=== PATIENT | female | born 1990 | race Caucasian/White ===

== ENCOUNTER → 2017-05-23 | Outpatient (REF) | payer OTHER | LOC: M LAB REF 13:04 | PROVIDERS: ATTEND Advanced Practice Midwife | DX: A49.9 Bacterial infection, unspecified (principal) ==

== ENCOUNTER → 2018-07-17 | Outpatient (REF) | payer OTHER | LOC: M LAB REF 18:33 | DX: Z12.4 Encounter for screening for malignant neoplasm of cervix (principal) | CPT/HCPCS: 88142 ==

== ENCOUNTER → 2018-09-13 | Outpatient (REF) | payer OTHER ==
[2018-09-13 17:02] LABS: HIV 1&2 SCREEN CENTAUR NEGATIVE (NEGATIVE)
== END ==
LOC: M SFHCPLAZ 12:45
PROVIDERS: ATTEND Dermatology
DX: R21 Rash and other nonspecific skin eruption (principal)

== ENCOUNTER → 2019-11-12 | Outpatient (REF) | payer OTHER | LOC: M SFHCCLAY 15:30 | PROVIDERS: ATTEND Family Medicine | DX: R30.0 Dysuria (principal) ==

== ENCOUNTER → 2021-01-19 | Outpatient (REF) | payer OTHER | LOC: M SFHCWAGY 09:46 | PROVIDERS: ATTEND Advanced Practice Midwife | DX: Z12.4 Encounter for screening for malignant neoplasm of cervix (principal) ==

== ENCOUNTER 2021-11-11 11:21 | Emergency (ER) | payer OTHER ==
[~2021-11-11] VITALS: Ht 165.1 cm; Wt 81.5 kg
[2021-11-11 11:35] VITALS: BP 137/88
[2021-11-11 13:22] LABS: BASO % 0.5 % (0.0-1.0); EOS # 0.3 10^3/uL (0.0-0.5); EOS % 3.6 % (0.0-3.0); HEMATOCRIT 39.4 % (36.0-47.0); HEMOGLOBIN 13.2 g/dl (12.0-15.5); LYMPH # 2.1 10^3/uL (1.5-5.0); LYMPH % 24.6 % (24.0-44.0); MEAN CORPUSCULAR HEMOGLOBIN 31.1 pg (27.0-33.0); MEAN CORPUSCULAR HGB CONC 33.5 g/dl (32.0-36.5); MEAN CORPUSCULAR VOLUME 92.9 fl (80.0-96.0); MONO # 0.8 10^3/uL (0.0-0.8); MONO % 9.7 % (2.0-8.0); NEUTROPHILS # 5.1 10^3/uL (1.5-8.5); NEUTROPHILS % 61.4 % (36.0-66.0); PLATELET COUNT, AUTOMATED 316 10^3/uL (150-450); RED BLOOD COUNT 4.24 10^6/uL (4.00-5.40); WHITE BLOOD COUNT 8.3 10^3/uL (4.0-10.0)
[2021-11-11 14:38] LABS: BLOOD UREA NITROGEN 10 MG/DL (7-18); CALCIUM LEVEL 9.1 MG/DL (8.5-10.1); CARBON DIOXIDE LEVEL 22 MEQ/L (21-32); CHLORIDE LEVEL 108 MEQ/L (98-107); CREATININE FOR GFR 0.44 MG/DL (0.55-1.30); GLOMERULAR FILTRATION RATE > 60.0 (>60); GLUCOSE, FASTING 92 MG/DL (70-100); HCG, SERUM QUANTITATIVE 6618 MIU/ML; POTASSIUM SERUM 4.2 MEQ/L (3.5-5.1); SODIUM LEVEL 138 MEQ/L (136-145)
== END 2021-11-11 15:50 | disposition home or self-care (01) ==
LOC: M ED 11:21
DX: O02.1 Missed abortion (principal); O99.321 Drug use complicating pregnancy, first trimester; Z86.16 Personal history of COVID-19; Z3A.01 Less than 8 weeks gestation of pregnancy

== ENCOUNTER → 2022-03-02 | Outpatient (CLI) | payer OTHER ==
[2022-03-02 17:53] LABS: BASO % 0.4 % (0.0-1.0); EOS # 0.2 10^3/uL (0.0-0.5); EOS % 2.1 % (0.0-3.0); HEMATOCRIT 40.4 % (36.0-47.0); HEMOGLOBIN 13.3 g/dl (12.0-15.5); LYMPH # 2.5 10^3/uL (1.5-5.0); LYMPH % 26.3 % (24.0-44.0); MEAN CORPUSCULAR HEMOGLOBIN 29.9 pg (27.0-33.0); MEAN CORPUSCULAR HGB CONC 32.9 g/dl (32.0-36.5); MEAN CORPUSCULAR VOLUME 90.8 fl (80.0-96.0); MONO # 0.7 10^3/uL (0.0-0.8); MONO % 7.6 % (2.0-8.0); NEUTROPHILS # 5.9 10^3/uL (1.5-8.5); NEUTROPHILS % 63.4 % (36.0-66.0); PLATELET COUNT, AUTOMATED 292 10^3/uL (150-450); RED BLOOD COUNT 4.45 10^6/uL (4.00-5.40); WHITE BLOOD COUNT 9.3 10^3/uL (4.0-10.0)
[2022-03-02 19:02] LABS: HEPATITIS C VIRUS ABY INDEX 0.1 INDEX (<0.8); HIV 1&2 SCREEN CENTAUR NEGATIVE (NEGATIVE)
[2022-03-03 13:47] LABS: GC DNA AMPLIFICATION NEGATIVE (NEGATIVE)
== END ==
LOC: M PLALAB 14:46
PROVIDERS: ATTEND Advanced Practice Midwife
DX: Z34.80 Encounter for supervision of other normal pregnancy, unspecified trimester (principal); Z36.89 Encounter for other specified antenatal screening

== ENCOUNTER → 2022-04-26 | Outpatient (CLI) | payer OTHER | LOC: M WHC 14:47 | PROVIDERS: ATTEND Obstetrics & Gynecology | DX: Z36.89 Encounter for other specified antenatal screening (principal); Z3A.16 16 weeks gestation of pregnancy; Z3A.19 19 weeks gestation of pregnancy ==

== ENCOUNTER → 2022-06-07 | Outpatient (CLI) | payer OTHER | LOC: M WHC 08:56 | PROVIDERS: ATTEND Obstetrics & Gynecology | DX: Z36.2 Encounter for other antenatal screening follow-up (principal); Z3A.26 26 weeks gestation of pregnancy ==

== ENCOUNTER → 2022-06-21 | Outpatient (CLI) | payer OTHER ==
[2022-06-21 15:24] LABS: HEMATOCRIT 37.6 % (36.0-47.0); HEMOGLOBIN 12.5 g/dl (12.0-15.5); MEAN CORPUSCULAR HGB CONC 33.2 g/dl (32.0-36.5); MEAN CORPUSCULAR VOLUME 93.3 fl (80.0-96.0); PLATELET COUNT, AUTOMATED 273 10^3/uL (150-450); RED BLOOD COUNT 4.03 10^6/uL (4.00-5.40); WHITE BLOOD COUNT 10.4 10^3/uL (4.0-10.0)
[2022-06-21 17:14] LABS: GC DNA AMPLIFICATION NEGATIVE (NEGATIVE)
== END ==
LOC: M PLALAB 12:07
PROVIDERS: ATTEND Obstetrics & Gynecology
DX: Z34.92 Encounter for supervision of normal pregnancy, unspecified, second trimester (principal); Z3A.24 24 weeks gestation of pregnancy

== ENCOUNTER → 2022-08-24 | Outpatient (REF) | payer OTHER | LOC: M SFHCWAGY 17:37 | PROVIDERS: ATTEND Obstetrics & Gynecology | DX: Z36.9 Encounter for antenatal screening, unspecified (principal) ==

== ENCOUNTER 2022-09-02 21:03 | Inpatient (IN) | payer OTHER ==
[~2022-09-02] VITALS: Ht 165.1 cm; Wt 84.8 kg
[2022-09-02] MEDS ORDERED: PRENTAB9 PO (21:17)
[2022-09-02 21:25] VITALS: BP 139/86
[2022-09-02] MEDS ORDERED: LACTATED RINGER'S 1000 ML IV STA (23:14)
[2022-09-02] MEDS ORDERED: OXYTOCIN DRIP 30 UNITS in IV 1 EA IV PRN (23:15)
[2022-09-02] MEDS ORDERED: LIDOCAINE 1% MDV 20ML VIAL INFIL PRN (23:15)
[2022-09-02 23:54] LABS: HEMATOCRIT 39.2 % (36.0-47.0); HEMOGLOBIN 13.8 g/dl (12.0-15.5); MEAN CORPUSCULAR HEMOGLOBIN 31.2 pg (27.0-33.0); MEAN CORPUSCULAR HGB CONC 35.2 g/dl (32.0-36.5); MEAN CORPUSCULAR VOLUME 88.5 fl (80.0-96.0); PLATELET COUNT, AUTOMATED 325 10^3/uL (150-450); RED BLOOD COUNT 4.43 10^6/uL (4.00-5.40); WHITE BLOOD COUNT 12.8 10^3/uL (4.0-10.0)
[2022-09-02 23:59] VITALS: BP 141/95
[2022-09-03] VITALS (62 sets, daily range): BP systolic 109–181; BP diastolic 57–107
[2022-09-03] MEDS ORDERED: ONDANSETRON 4MG 2ML VIAL IV SCH
[2022-09-03] MEDS: LR 1,000 ML IV SCH ×2 (00:50→09:53)
[2022-09-03] MEDS ORDERED: EPIDURAL/PCA KEYS XX PRN (00:50)
[2022-09-03] MEDS ORDERED: LR 500 ML IV PRN (00:50)
[2022-09-03] MEDS ORDERED: NALOXONE INJ 0.4MG/1ML VIAL IV PRN (00:50)
[2022-09-03] MEDS ORDERED: ePHEDrine SULFATE 25 MG/5 ML(5MG/ML) SYRINGE IVP PRN (00:50)
[2022-09-03] MEDS ORDERED: diphenhydrAMINE 50MG/ML VIAL IV PRN (00:50)
[2022-09-03] MEDS ORDERED: ONDANSETRON 4MG 2ML VIAL IV PRN (00:50)
[2022-09-03] MEDS: FENTANYL/ROPIVACAINE/NACL BAG 100 ML EPIDURAL SCH ×2 (01:20→08:22)
[2022-09-03] MEDS ORDERED: OXYTOCIN DRIP 30 UNITS in IV 1 EA IV SCH ×2 (09:55→16:10)
[2022-09-03 11:32] LABS: URIC ACID 4.9 MG/DL (3.1-7.8)
[2022-09-03 11:34] LABS: LDH LACTATE DEHYDROGENASE 169 U/L (120-246)
[2022-09-03 11:39] LABS: ALT/SGPT 26 U/L (7.0-40); AST/SGOT 21 U/L (<34); BILIRUBIN,TOTAL 0.5 MG/DL (0.3-1.2); CREATININE FOR GFR 0.47 MG/DL (0.55-1.30); GLOMERULAR FILTRATION RATE > 60.0 (>60)
[2022-09-03 11:57] LABS: TOTAL PROTEIN,RANDOM URINE 34.2 MG/DL (0.0-14.0)
[2022-09-03 12:02] LABS: CREATININE,RANDOM URINE 116.4 MG/DL
[2022-09-03] MEDS ORDERED: DIBUCAINE 1% OINTMENT 30GM TOP PRN (16:10)
[2022-09-03] MEDS ORDERED: RHOGAM 300 MCG (1500 IU) INJ (J2790) IM SCH (16:10)
[2022-09-03] MEDS ORDERED: DOCUSATE SODIUM 100MG CAPSULE PO PRN (16:10)
[2022-09-03] MEDS ORDERED: ACETAMINOPHEN 500 MG TAB PO PRN (16:10)
[2022-09-03] MEDS ORDERED: METHYLERGONOVINE MALEATE 0.2 MG TAB PO PRN (16:10)
[2022-09-03] MEDS ORDERED: LIDOCAINE 1% MDV 20ML VIAL INFIL ONE (16:10)
[2022-09-03] MEDS: LABETALOL 100MG/20ML VIAL IV STA ×2 (17:37→18:00)
[2022-09-03] MEDS ORDERED: NIFEdipine 10 MG CAP PO STA (18:10)
[2022-09-03] MEDS: LABETALOL 200 MG TAB PO SCH (20:52)
[2022-09-03] MEDS: IBUPROFEN 600MG TAB PO PRN (22:36)
[2022-09-04] VITALS: BP 113/58
[2022-09-04 01:00] VITALS: BP 118/60
[2022-09-04 02:00] VITALS: BP 107/77
[2022-09-04 06:00] VITALS: BP 122/72
[2022-09-04] MEDS: PRENATAL VITAMINS CHEWABLE TABLET PO SCH (08:09)
[2022-09-04] MEDS: IBUPROFEN 600MG TAB PO PRN ×2 (08:10→17:29)
[2022-09-04] MEDS: LABETALOL 200 MG TAB PO SCH ×2 (08:10→20:24)
[2022-09-04] MEDS ORDERED: PRENATAL VITAMINS CHEWABLE TABLET PO SCH (09:00)
[2022-09-04 18:00] VITALS: BP 120/65
[2022-09-04 22:00] VITALS: BP 126/73
[2022-09-05 02:00] VITALS: BP 135/85
[2022-09-05 06:00] VITALS: BP 134/84
[2022-09-05] MEDS: PRENATAL VITAMINS CHEWABLE TABLET PO SCH (08:49)
[2022-09-05 08:50] VITALS: BP 135/80
[2022-09-05] MEDS: LABETALOL 200 MG TAB PO SCH (08:50)
[2022-09-05] MEDS ORDERED: MEASLES,MUMPS,RUBELLA VACCINE INJ (MMR-II) (90707) SC.IMMUN ONE (09:00)
[2022-09-05] MEDS ORDERED: LABE100T71 PO (09:14)
== END 2022-09-05 12:34 | disposition home or self-care (01) | DRG 560 ==
LOC: M LDO 21:03 → M LDI 22:57 → M OBS 09-03 20:54
PROVIDERS: ADMIT Specialist; ATTEND Advanced Practice Midwife
PROC: 10E0XZZ Delivery of Products of Conception, External Approach (ICD-10-PCS; principal; 2022-09-03)
PROC: 10907ZC Drainage of Amniotic Fluid, Therapeutic from Products of Conception, Via Natural or Artificial Opening (ICD-10-PCS; 2022-09-03)
PROC: 0HQ9XZZ Repair Perineum Skin, External Approach (ICD-10-PCS; 2022-09-03)
DX: O70.0 First degree perineal laceration during delivery (principal); O64.5XX0 Obstructed labor due to compound presentation, not applicable or unspecified; Z3A.38 38 weeks gestation of pregnancy; Z37.0 Single live birth; O13.5 Gestational [pregnancy-induced] hypertension without significant proteinuria, complicating the puerperium

== ENCOUNTER → 2023-01-06 | Outpatient (REF) | payer OTHER ==
[~2023-01-06] MED LIST: LABE100T71 PO; PRENTAB9 PO
== END ==
LOC: M PLALAB 15:02
PROVIDERS: ATTEND Advanced Practice Midwife
DX: Z12.4 Encounter for screening for malignant neoplasm of cervix (principal)

== ENCOUNTER → 2023-08-08 | Outpatient (REF) | payer OTHER ==
[~2023-08-08] MED LIST changes: +ONDA4TAB6 PO
[2023-08-08 18:47] LABS: HEMATOCRIT 42.3 % (36.0-47.0); HEMOGLOBIN 13.6 g/dl (12.0-15.5); MEAN CORPUSCULAR HEMOGLOBIN 30.8 pg (27.0-33.0); MEAN CORPUSCULAR HGB CONC 32.2 g/dl (32.0-36.5); MEAN CORPUSCULAR VOLUME 95.7 fl (80.0-96.0); PLATELET COUNT, AUTOMATED 314 10^3/uL (150-450); RED BLOOD COUNT 4.42 10^6/uL (4.00-5.40); WHITE BLOOD COUNT 6.4 10^3/uL (4.0-10.0)
[2023-08-08 18:53] LABS: ALBUMIN 3.4 G/DL (3.2-5.2); ALKALINE PHOSPHATASE 67 U/L (46-116); ALT/SGPT 48 U/L (7.0-40); AST/SGOT 30 U/L (<34); BILIRUBIN,TOTAL 0.3 MG/DL (0.3-1.2); BLOOD UREA NITROGEN 16 MG/DL (9-23); CALCIUM LEVEL 8.8 MG/DL (8.5-10.1); CARBON DIOXIDE LEVEL 28 MMOL/L (20-31); CHLORIDE LEVEL 106 MMOL/L (98-107); CHOLESTEROL LEVEL 234 MG/DL (<200); CHOLESTEROL RISK RATIO 2.25 (<5); CREATININE FOR GFR 0.58 MG/DL (0.55-1.30); GLOMERULAR FILTRATION RATE > 60.0 (>60); GLUCOSE, FASTING 74 MG/DL (60-100); HDL CHOLESTEROL 103.9 MG/DL (>40); LDL CHOLESTEROL 118.3 MG/DL (<100); NON-HDL-C 130.1 MG/DL; POTASSIUM SERUM 4.6 MMOL/L (3.5-5.1); SODIUM LEVEL 141 MMOL/L (136-145); TOTAL PROTEIN 6.6 G/DL (5.7-8.2); TRIGLYCERIDES LEVEL 59 MG/DL (<150)
== END ==
LOC: M SFHCCLAY 10:15
PROVIDERS: ATTEND Nurse Practitioner Family
DX: Z00.00 Encounter for general adult medical examination without abnormal findings (principal)

== ENCOUNTER → 2024-05-24 | Outpatient (REF) | payer OTHER ==
[~2024-05-24] MED LIST changes: +LABE100T40 PO; -LABE100T71 PO; +ONDA-282 PO; -ONDA4TAB6 PO
== END ==
LOC: M PLALAB 13:40
PROVIDERS: ATTEND Nurse Practitioner Women's Health
DX: O09.292 Supervision of pregnancy with other poor reproductive or obstetric history, second trimester (principal); Z53.9 Procedure and treatment not carried out, unspecified reason

== ENCOUNTER → 2024-06-25 | Outpatient (CLI) | payer OTHER ==
[2024-06-25 18:37] LABS: HEMATOCRIT 39.4 % (36.0-47.0); MEAN CORPUSCULAR HEMOGLOBIN 30.6 pg (27.0-33.0); MEAN CORPUSCULAR VOLUME 92.7 fl (80.0-96.0); PLATELET COUNT, AUTOMATED 273 10^3/uL (150-450); RED BLOOD COUNT 4.25 10^6/uL (4.00-5.40); WHITE BLOOD COUNT 10.9 10^3/uL (4.0-10.0)
[2024-06-25 19:25] LABS: HIV 1&2 SCREEN NEGATIVE (NEGATIVE)
[2024-06-25 19:33] LABS: HEPATITIS C VIRUS ABY INDEX 0.02 INDEX (<0.8)
[2024-06-25 20:38] LABS: GC DNA AMPLIFICATION NEGATIVE (NEGATIVE)
== END ==
LOC: M PLALAB 15:31
PROVIDERS: ATTEND Advanced Practice Midwife
DX: O09.291 Supervision of pregnancy with other poor reproductive or obstetric history, first trimester (principal); Z3A.00 Weeks of gestation of pregnancy not specified

== ENCOUNTER → 2024-07-30 | Outpatient (CLI) | payer OTHER | LOC: M WHC 12:00 | PROVIDERS: ATTEND Advanced Practice Midwife | DX: O32.1XX0 Maternal care for breech presentation, not applicable or unspecified (principal); Z3A.19 19 weeks gestation of pregnancy ==

== ENCOUNTER → 2024-09-04 | Outpatient (CLI) | payer OTHER | LOC: M RAD 09:28 | PROVIDERS: ATTEND Nurse Practitioner Family | DX: Z34.82 Encounter for supervision of other normal pregnancy, second trimester (principal) ==

== ENCOUNTER → 2024-09-27 | Outpatient (CLI) | payer OTHER ==
[2024-09-27 16:11] LABS: HEMATOCRIT 35.7 % (36.0-47.0); HEMOGLOBIN 11.6 g/dl (12.0-15.5); MEAN CORPUSCULAR HEMOGLOBIN 30.9 pg (27.0-33.0); MEAN CORPUSCULAR HGB CONC 32.5 g/dl (32.0-36.5); MEAN CORPUSCULAR VOLUME 94.9 fl (80.0-96.0); PLATELET COUNT, AUTOMATED 259 10^3/uL (150-450); RED BLOOD COUNT 3.76 10^6/uL (4.00-5.40); WHITE BLOOD COUNT 9.5 10^3/uL (4.0-10.0)
[2024-09-27 16:21] LABS: GLUCOSE CHALLENGE TEST 1 HOUR 99 MG/DL (LESS THAN 140)
[2024-09-27 17:57] LABS: GC DNA AMPLIFICATION NEGATIVE (NEGATIVE)
[2024-09-27 21:14] LABS: HIV 1&2 SCREEN NEGATIVE (NEGATIVE)
[2024-09-27 21:22] LABS: HEPATITIS C VIRUS ABY INDEX < 0.02 INDEX (<0.8)
== END ==
LOC: M PLALAB 11:43
PROVIDERS: ATTEND Obstetrics & Gynecology
DX: Z36.89 Encounter for other specified antenatal screening (principal); Z3A.23 23 weeks gestation of pregnancy

== ENCOUNTER → 2024-11-27 | Outpatient (REF) | payer OTHER | LOC: M SFHCWAGY 16:59 | PROVIDERS: ATTEND Nurse Practitioner Family | DX: Z34.93 Encounter for supervision of normal pregnancy, unspecified, third trimester (principal); Z3A.36 36 weeks gestation of pregnancy ==

== ENCOUNTER 2024-12-13 02:54 | Inpatient (IN) | payer OTHER ==
[~2024-12-13] VITALS: Ht 167.6 cm; Wt 81.4 kg
[2024-12-13] VITALS (34 sets, daily range): BP systolic 84–143; BP diastolic 50–105; O2SAT 96–98
[2024-12-13] MEDS ORDERED: HOME MED LIST COMPLETE! XX SCH (03:15)
[2024-12-13 03:58] LABS: BASO % 0.2 % (0.0-1.0); EOS # 0.1 10^3/uL (0.0-0.5); EOS % 0.7 % (0.0-3.0); HEMATOCRIT 35.8 % (36.0-47.0); LYMPH # 2.7 10^3/uL (1.5-5.0); LYMPH % 20.4 % (24.0-44.0); MEAN CORPUSCULAR HEMOGLOBIN 29.4 pg (27.0-33.0); MEAN CORPUSCULAR HGB CONC 33.5 g/dl (32.0-36.5); MEAN CORPUSCULAR VOLUME 87.7 fl (80.0-96.0); MONO # 0.8 10^3/uL (0.0-0.8); MONO % 6.2 % (2.0-8.0); NEUTROPHILS # 9.5 10^3/uL (1.5-8.5); NEUTROPHILS % 72.2 % (36.0-66.0); PLATELET COUNT, AUTOMATED 311 10^3/uL (150-450); RED BLOOD COUNT 4.08 10^6/uL (4.00-5.40); WHITE BLOOD COUNT 13.1 10^3/uL (4.0-10.0)
[2024-12-13] MEDS ORDERED: ePHEDrine SULFATE 25 MG/5 ML(5MG/ML) SYRINGE IVP PRN (04:30)
[2024-12-13] MEDS ORDERED: LR 500 ML IV PRN (04:30)
[2024-12-13] MEDS ORDERED: ONDANSETRON 4MG 2ML VIAL IV PRN (04:30)
[2024-12-13] MEDS ORDERED: NALOXONE INJ 0.4MG/1ML VIAL IV PRN (04:30)
[2024-12-13] MEDS ORDERED: EPIDURAL/PCA KEYS XX PRN (04:30)
[2024-12-13] MEDS ORDERED: diphenhydrAMINE 50MG/ML VIAL IV PRN (04:30)
[2024-12-13 04:55] LABS: HIV 1&2 SCREEN NEGATIVE (NEGATIVE)
[2024-12-13] MEDS: LACTATED RINGER'S 1000 ML IV PRN (04:55)
[2024-12-13] MEDS: FENTANYL/ROPIVACAINE/NACL BAG 100 ML EPIDURAL SCH (04:59)
[2024-12-13 05:03] LABS: HEPATITIS C VIRUS ABY INDEX 0.04 INDEX (<0.8)
[2024-12-13] MEDS ORDERED: METHYLERGONOVINE MALEATE 0.2MG/ML 1ML VIAL IM PRN (05:20)
[2024-12-13] MEDS ORDERED: OXYTOCIN DRIP 30 UNITS in IV 1 EA IV PRN (05:20)
[2024-12-13] MEDS ORDERED: TRANEXAMIC ACID INJection 1,000 MG in NS 100 ML IV PRN (05:20)
[2024-12-13] MEDS ORDERED: LIDOCAINE 1% MDV 20ML VIAL INFIL PRN (05:20)
[2024-12-13] MEDS ORDERED: CARBOPROST TROMETHAMINE 250 MCG/ML AMP IM PRN (05:20)
[2024-12-13] MEDS ORDERED: OXYTOCIN INJ 10UNITS/ML 1ML VIAL IM PRN (05:20)
[2024-12-13] MEDS: LR 1,000 ML IV SCH (05:53)
[2024-12-13] MEDS ORDERED: CALCIUM CARBONATE 500 MG CHEW U/D PO PRN (11:15)
[2024-12-13] MEDS ORDERED: METHYLERGONOVINE MALEATE 0.2 MG TAB PO PRN (11:15)
[2024-12-13] MEDS ORDERED: RHOGAM 300MCG (1500IU) INJ IM SCH (11:15)
[2024-12-13] MEDS ORDERED: IBUPROFEN 600MG TAB PO PRN (11:15)
[2024-12-13] MEDS ORDERED: ACETAMINOPHEN 325 MG TAB PO PRN (11:15)
[2024-12-13] MEDS ORDERED: DIBUCAINE 1% OINTMENT 30GM TOP PRN (11:15)
[2024-12-13] MEDS ORDERED: ANUSOL HC CREAM 30GM TOP PRN (11:15)
[2024-12-13] MEDS: OXYTOCIN DRIP 30 UNITS in IV 1 EA IV PRN (11:15)
[2024-12-13] MEDS ORDERED: DOCUSATE SODIUM 100MG CAPSULE PO PRN (11:15)
[2024-12-13] MEDS ORDERED: MOM 30ML SUSPENSION UDC PO PRN (11:15)
[2024-12-13] MEDS: OXYTOCIN DRIP 30 UNITS in IV 1 EA IV SCH (11:32)
[2024-12-13] MEDS: IBUPROFEN 800 MG TAB PO PRN (11:42)
[2024-12-14 06:00] VITALS: BP 129/79; O2SAT 95
[2024-12-14] MEDS: PRENATAL VITAMINS CHEWABLE TABLET PO SCH (08:02)
[2024-12-14] MEDS: ACETAMINOPHEN 500 MG TAB PO PRN (08:03)
[2024-12-14 08:21] VITALS: BP 129/79; TEMP 98.8; O2SAT 95
[2024-12-14] MEDS ORDERED: ACET-683 PO (13:13)
[2024-12-14] MEDS ORDERED: IBUP-1022 PO (13:13)
[2024-12-15] MEDS ORDERED: MEASLES,MUMPS,RUBELLA VACCINE INJ (MMR-II) SC.IMMUN ONE (09:00)
== END 2024-12-14 15:00 | disposition home or self-care (01) | DRG 560 ==
LOC: M LDO 02:54 → M LDI 03:27 → M OBS 13:30
PROVIDERS: ADMIT Advanced Practice Midwife; ATTEND Obstetrics & Gynecology
PROC: 10E0XZZ Delivery of Products of Conception, External Approach (ICD-10-PCS; principal; 2024-12-13)
DX: O80 Encounter for full-term uncomplicated delivery (principal); Z37.0 Single live birth; Z3A.38 38 weeks gestation of pregnancy

== ENCOUNTER → 2025-07-18 | Outpatient (REF) | payer MEDICAID, OTHER ==
[~2025-07-18] MED LIST changes: +ACET-683 PO; +IBUP600T42 PO
[2025-07-23 15:59] LABS: HPV APTIMA Not Detected (Not Detected)
== END ==
LOC: M SFHCWAGY 17:29
PROVIDERS: ATTEND Advanced Practice Midwife
DX: Z12.4 Encounter for screening for malignant neoplasm of cervix (principal); R87.610 Atypical squamous cells of undetermined significance on cytologic smear of cervix (ASC-US)